=== PATIENT | male | born 1975 | race Caucasian/White ===

== ENCOUNTER 2016-10-23 20:51 | Emergency (ER) | payer MEDICAID ==
[2016-10-23 21:36] LABS: APPEARANCE CLEAR (CLEAR); BILIRUBIN NEGATIVE (NEGATIVE); COLOR YELLOW (YELLOW); GLUCOSE NEGATIVE (NEGATIVE); KETONE NEGATIVE (NEGATIVE); LEUKOCYTE ESTERASE NEGATIVE (NEGATIVE); NITRITE NEGATIVE (NEGATIVE); PROTEIN NEGATIVE (NEGATIVE); UROBILINOGEN NORMAL (NORMAL)
[2016-10-23 21:46] LABS: UDS - AMPHET NEGATIVE QUAL (NEGATIVE); UDS - BARB NEGATIVE QUAL (NEGATIVE); UDS - BENZO NEGATIVE QUAL (NEGATIVE); UDS - COCAINE NEGATIVE QUAL (NEGATIVE); UDS - METH NEGATIVE QUAL (NEGATIVE); UDS - OPIATE NEGATIVE QUAL (NEGATIVE); UDS - PCP NEGATIVE QUAL (NEGATIVE); UDS - THC NEGATIVE QUAL (NEGATIVE)
[2016-10-23 21:59] LABS: BASOPHILS 0.9 % (0.0-2.0); EOSINOPHILS 4.7 % (0-7); HEMOGLOBIN 16.1 g/dL (13.5-17.5); IMMATURE GRANULOCYTES 0.2 % (0-5); LYMPHOCYTES 37.2 % (15-50); MCH 30.3 pg (26.0-34.0); MCHC 33.5 g/dL (31.0-37.0); MCV 90.4 fL (80.0-100.0); MEAN PLATELET VOLUME 11.3 fL (7.4-10.4); MONOCYTES 7.3 % (2-11); NEUTROPHILS 49.7 % (40-80); PLATELET COUNT 179 10x3/uL (130-400); RBC 5.31 10x6/uL (4.20-6.10); RDW 12.9 % (11.5-14.5); WBC 6.4 10x3/uL (4.8-10.8)
[2016-10-23 22:15] LABS: ALBUMIN 3.3 g/dL (3.4-5.0); ALKALINE PHOSPHATASE 71 U/L (46-116); ALT (SGPT) 30 U/L (10-68); BILIRUBIN - TOTAL 0.28 mg/dL (0.2-1.3); CALC OSMOLALITY 279 mosm/kg (275-300); CALCIUM 9.2 mg/dL (8.5-10.1); CARBON DIOXIDE 30.5 mmol/L (21.0-32.0); CHLORIDE - SERUM 105 mmol/L (98-107); CREATININE - SERUM 0.9 mg/dL (0.6-1.3); GLUCOSE 104 mg/dL (74-106); POTASSIUM - SERUM 4.2 mmol/L (3.5-5.1); PROTEIN - SERUM 6.9 g/dL (6.4-8.2); SODIUM 140 mmol/L (136-145); UREA NITROGEN 14 mg/dL (7-18); eGFR NON AFRICAN AMERICAN > 90 mL/min (90-120)
== END 2016-10-23 22:17 | disposition home or self-care (01) ==
LOC: D.ER 20:51
PROVIDERS: Emergency Medicine
DX: F32.9 Major depressive disorder, single episode, unspecified (principal); I10 Essential (primary) hypertension; G47.30 Sleep apnea, unspecified; F17.200 Nicotine dependence, unspecified, uncomplicated

== ENCOUNTER 2017-01-13 06:32 | Emergency (ER) | payer MEDICAID | END 2017-01-13 07:45 | disposition home or self-care (01) | LOC: D.ER 06:32 | DX: F41.9 Anxiety disorder, unspecified (principal); I10 Essential (primary) hypertension; G47.30 Sleep apnea, unspecified ==

== ENCOUNTER 2017-11-24 18:39 | Emergency (ER) | payer MEDICAID | END 2017-11-24 20:58 | disposition home or self-care (01) | LOC: D.ER 18:39 | DX: M51.36 Other intervertebral disc degeneration, lumbar region (principal); S39.012A Strain of muscle, fascia and tendon of lower back, initial encounter; X50.0XXA Overexertion from strenuous movement or load, initial encounter; Y93.89 Activity, other specified; Y92.019 Unspecified place in single-family (private) house as the place of occurrence of the external cause; I10 Essential (primary) hypertension ==

== ENCOUNTER → 2018-03-17 19:48 | Outpatient (CLI) | payer MEDICAID | END | disposition home or self-care (01) | LOC: D.SLEEP 08:00 | DX: G47.33 Obstructive sleep apnea (adult) (pediatric) (principal) ==

== ENCOUNTER 2020-01-02 23:13 | Inpatient (IN) | payer MEDICAID ==
[~2020-01-02] VITALS: Ht 193 cm; Wt 235.0 kg
[2020-01-02] MEDS ORDERED: VERAPAMIL HCL40 MG (23:19)
[2020-01-02] MEDS ORDERED: FUROSEMIDE20 MG (23:19)
[2020-01-02] MEDS ORDERED: LEXAPRO5 MG (23:20)
[2020-01-02] MEDS ORDERED: LISINOPRIL10 MG (23:20)
[2020-01-02] MEDS ORDERED: BUPROPION HCL100 MG (23:20)
[2020-01-02] MEDS ORDERED: ATIVAN1 MG (23:22)
[2020-01-03 00:20] LABS: HEMATOCRIT 42.5 % (42.0-54.0); HEMOGLOBIN 13.9 g/dL (13.5-17.5); LYMPHOCYTES 26.8 % (15-50); MCH 29.4 pg (26.0-34.0); MCHC 32.7 g/dL (31.0-37.0); MEAN PLATELET VOLUME 10.8 fL (7.4-10.4); NEUTROPHILS 64.4 % (40-80); PLATELET COUNT 206 10x3/uL (130-400); RBC 4.72 10x6/uL (4.20-6.10); RDW 13.3 % (11.5-14.5)
[2020-01-03 00:23] LABS: CALC OSMOLALITY 277 mosm/kg (275-300); CALCIUM 8.3 mg/dL (8.5-10.1); CARBON DIOXIDE 26.9 mmol/L (21.0-32.0); CHLORIDE - SERUM 104 mmol/L (98-107); GLUCOSE 97 mg/dL (74-106); POTASSIUM - SERUM 3.9 mmol/L (3.5-5.1); SODIUM 138 mmol/L (136-145); UREA NITROGEN 19 mg/dL (7-18); eGFR NON AFRICAN AMERICAN 86 mL/min (90-120)
[2020-01-03 00:28] LABS: ALBUMIN 3.2 g/dL (3.4-5.0); ALKALINE PHOSPHATASE 86 U/L (30-120); ALT (SGPT) 21 U/L (10-68); BILIRUBIN - TOTAL 0.29 mg/dL (0.2-1.3); PROTEIN - SERUM 6.7 g/dL (6.4-8.2)
[2020-01-03 01:24] VITALS: BP 168/80; BMI 63.0
--- NOTE | 2020-01-03 01:32 | NUR ---
PT ARRIVED TO UNIT VIA STRETCHER AT 0040 ESCORTED BY ER NURSE. STARTED IV FLUIDS AND LIBRARIAN HEAD PER ORDER. ADMISSION ASSESS AND HISTORY COMPLETE.
--- NOTE | 2020-01-03 01:35 | NUR ---
HELD IVPB ROBAXIN PT HAD 1500 MG PO GIVEN IN THE ER. WILL START IVPB AT 0815.
[2020-01-03] MEDS ORDERED: BUPROPION XL300 MG PO (01:36)
[2020-01-03] MEDS ORDERED: ATIVAN1 MG PO (01:36)
[2020-01-03] MEDS ORDERED: CALAN SR240 MG PO (01:37)
[2020-01-03] MEDS ORDERED: LEXAPRO20 MG PO (01:38)
[2020-01-03] MEDS ORDERED: LISINOPRIL20 MG PO (01:38)
[2020-01-03] MEDS ORDERED: PROAIR HFA8.5 G1 INH (01:38)
[2020-01-03 04:00] VITALS: BP 145/77
--- NOTE | 2020-01-03 07:05 | NUR ---
ALERT AND ORIENTED, RESTING IN BED WITH EYES OPEN. NO C/O PAIN, MORPHINE HEMATOLOGIST MANAGING PAIN AT THIS TIME. UP WITH ASSIST. IV TO LEFT AC, NS INFUSING @ 30ML/HR. SITE PATENT WITHOUT REDNESS OR SWELLING. DENIES ANY NEEDS AT THIS TIME. CALL LIGHT IN REACH. WILL CONTINUE TO MONITOR.
[2020-01-03 08:53] VITALS: BP 146/94
[2020-01-03 10:14] VITALS: Ht 193 cm; Wt 235.0 kg
[2020-01-03 11:38] LABS: BILIRUBIN NEGATIVE (NEGATIVE); GLUCOSE NEGATIVE (NEGATIVE); KETONE NEGATIVE (NEGATIVE); NITRITE NEGATIVE (NEGATIVE); UROBILINOGEN NORMAL (NORMAL)
[2020-01-03 12:13] VITALS: BP 121/83
--- NOTE | 2020-01-03 14:05 | NUR ---
DR GUY ORDERED MRI THORACIC SPINE, DUE TO BODY HABITUS I MEASURED THE PATIENT AND HE WOULD NOT FIT WITH PROPER POSITIONING FOR THE SCAN. CALLED DR GUY AND HE WANTS A CT INSTEAD. CANCELLED MRI, ORDERED CT. INFORMED NURSE AND PATIENT OF THE CHANGES.
[2020-01-03 16:58] VITALS: BP 118/62
--- NOTE | 2020-01-03 19:00 | NUR ---
BEDSIDE REPORT RECEIVED AND CARE OF PT ASSUMED. PT LYING IN LOW ARNETT'S POSITION TALKING ON THE PHONE. IV TO LEFT AC SALINE LOCKED. WILL MONITOR FOR NEEDS.
--- NOTE | 2020-01-03 19:17 | NUR ---
ALERT AND ORIENTED. NO C/O PAIN. NO S/S OF ACUTE DISTRESS NOTED. DENIES ANY NEEDS AT THIS TIME. CALL LIGHT IN REACH. WILL CONTINUE TO MONITOR.
[2020-01-03 20:00] VITALS: BP 103/59
--- NOTE | 2020-01-03 20:48 | NUR ---
HS MEDICATIONS GIVEN TO INCLUDE DILAUDID FOR PAIN. WILL CONTINUE TO MONITOR FOR NEEDS.
[2020-01-04 04:00] VITALS: BP 117/61
[2020-01-04 07:37] VITALS: BP 147/63
--- NOTE | 2020-01-04 07:50 | NUR ---
RATES PAIN 3/10 THIS MORNING. STATES "I DON'T KNOW WHAT I DID TO MY BACK, BUT IT IS FEELING A LITTLE BETTER".
[2020-01-04 12:17] VITALS: BP 93/33
[2020-01-04 15:29] VITALS: BP 124/71
--- NOTE | 2020-01-04 17:21 | NUR ---
HE REFUSED A BATH TODAY, HE STATES "I DON'T HAVE CLOTHES TO WEAR, I AM GOING HOME TOMORROW".
--- NOTE | 2020-01-04 19:24 | NUR ---
REPORT GIVEN TO TOMY STROUD.
[2020-01-04 21:55] VITALS: BP 130/56
[2020-01-05 00:55] VITALS: BP 140/86
--- NOTE | 2020-01-05 03:01 | NUR ---
1924)rec'd chge of shift walking rounds.in bed watching tv.denies any new complaints at present time. will continue to monitor for any chges in current status and follow current plan of care.
--- NOTE | 2020-01-05 05:11 | NUR ---
I have reviewed this patient and I concur with the Shift Assessment completed by the Licensed Practical Nurse today this shift.
[2020-01-05 06:50] VITALS: BP 126/74
--- NOTE | 2020-01-05 07:00 | NUR ---
RECEIVED REPORT FROM INSTRUCTOR PHYSICAL. UPON ENTERING PT WAS ON RIGHT SIDE LAYING DOWN WITH EYES CLOSED. BREATHING EVEN AND UNLABORED. NO S/S OF DISTRESS NOTED AT THIS TIME. LEFT AC SALINE LOCKED AFTER DRIP IS FINISHED. PT IS ON ROOM AIR. COMPLAINT OF CHRONIC BACK PAIN. WILL CONTINUE TO MONITOR.
[2020-01-05 09:05] VITALS: BP 127/62
--- NOTE | 2020-01-05 09:54 | NUR ---
ADMINISTERED MORNING MEDICATION AT THIS TIME. NO DIFFICULTY SWALLOWING. PT IS RESTING IN BED COMFORTABLY. DENIES ANY NEEDS AT THIS TIME. WILL CONTINUE TO MONITOR.
--- NOTE | 2020-01-05 10:07 | NUR ---
I CALLED DR GUY ON HIS MOBILE (GIVEN TO ME BY [place] FROM OFFICE) AND WAS GIVEN THE OKAY FOR DISCHARGE.
--- NOTE | 2020-01-05 10:16 | MORECARE ---
CASE MANAGEMENT DISCHARGE SUMMARY PATIENT: MICHAEL HOLGUIN UNIT: [id number] ADM DATE: 01/03/20 AGE: 44 : [birth year] SEX: M ROOM/BED: D.2239 AUTHOR: SUSY NORMAN PHYSICIAN: REFERRING PHYSICIAN: DARCY GILMORE MD DATE OF SERVICE: 01/05/20 Discharge Plan Patient Name: MICHAEL HOLGUIN Facility: [facility]:[place] : 1975 Planned Disposition: Home or Self Care Anticipated Discharge Date: Discharge Date: Expected LOS: Initial Reviewer: [email or web address] Initial Review Date: 01/03/2020 Generated: 01/05/20 11:15 am Comments DCP- Discharge Planning Updated by [email or web address]: Deidre Tuttle on 01/05/20 9:[address] Patient Name: MICHAEL HOLGUIN Admission Status: ER Accout number: [id number] Admission Date: 01-03-2020 : 1975 Admission Diagnosis:OTHER INTERVERTEBRAL DISC DEGENERATION, THORACIC REGION Attending: DARCY GILMORE Current LOS: 2 Anticipated DC Date: Planned Disposition: Home or Self Care Primary Insurance: UNINSURED DISCOUNT PLAN Discharge Planning Comments: CM spoke with patient over phone to complete initial dc planning assessment. CM educated patient on the CM role and verbal consent given by patient to complete assessment. Patient lives at home with his spouse where he is independent with his adl's . At discharge patient plans to return home and feels this is a safe discharge. Either his helper or his sister will be his horse and wagon driver home. CM discussed availability of home health, rehab services, and medical equipment. He said he has a sleep apnea machine and a helper who comes 2-4 hours a day, with [employer]. He has a wheelchair at home too. Patient denied known discharge needs at this time. CM will continue to follow and will assist as needed with dc plans/needs. Car Wash Attendant: Deidre Tuttle DCPIA - Discharge Planning Initial Assessment Updated by [email or web address]: Deidre Tuttle on 01/05/20 10:11 am * Is the patient Alert and Oriented? Yes * How many steps to enter\exit or inside your home? * PCP RAYMOND BEE * Pharmacy [facility] [address] * Preadmission Environment Home with Family * ADLs Independent * Equipment CPAP Wheelchair * List name and contact numbers for known caregivers / representatives who currently or will assist patient after discharge: MAYO (SPOUSE) [phone] * Verbal permission to speak to the caregivers and representatives has been obtained from the patient. N/A * Community resources currently utilized [employer] * Please name any agencies selected above. [facility] * Additional services required to return to the preadmission environment? No * Can the patient safely return to the preadmission environment? Yes * Has this patient been hospitalized within the prior 30 days at any hospital? No Patient Name: MICHAEL HOLGUIN Page [phone] at 1016 All edits/amendments must be made on the electronic document DICTATION DATE: 01/05/20 1016 TELESALES CONSULTANT: CONCHIS 01/05/20 1016 RPT#: [id number] DC DATE: STATUS: ADM IN [facility] [address] [place] [address] END OF REPORT
--- NOTE | 2020-01-05 10:34 | NUR ---
DC PT IV WITH CATHETER TIP INTACT. EXPLAINED PT DISCHARGE PAPERS, PT SIGNED ALL PAPERS AND IS CONTACTING RIDE TO GET HOME. DENIES ANY NEEDS AT THIS TIME.
--- NOTE | 2020-01-05 18:19 | MORECARE ---
CASE MANAGEMENT DISCHARGE SUMMARY PATIENT: MICHAEL HOLGUIN UNIT: [id number] ADM DATE: 01/03/20 AGE: 44 : 73 SEX: M ROOM/BED: D.2239 AUTHOR: SUSY NORMAN PHYSICIAN: REFERRING PHYSICIAN: DARCY GILMORE MD DATE OF SERVICE: 01/05/20 Discharge Plan Patient Name: MICHAEL HOLGUIN Facility: [facility]:[place] : 1975 Planned Disposition: Home or Self Care Anticipated Discharge Date: Discharge Date: 01/05/2020 Expected LOS: 0 Initial Reviewer: [email or web address] Initial Review Date: 01/03/2020 Generated: 01/05/20 7:18 pm Comments DCP- Discharge Planning Updated by [email or web address]: Deidre Tuttle on 01/05/20 9:[address] Patient Name: MICHAEL HOLGUIN Admission Status: ER Accout number: [id number] Admission Date: 01-03-2020 : 1975 Admission Diagnosis:OTHER INTERVERTEBRAL DISC DEGENERATION, THORACIC REGION Attending: DARCY GILMORE Current LOS: 2 Anticipated DC Date: Planned Disposition: Home or Self Care Primary Insurance: UNINSURED DISCOUNT PLAN Discharge Planning Comments: CM spoke with patient over phone to complete initial dc planning assessment. CM educated patient on the CM role and verbal consent given by patient to complete assessment. Patient lives at home with his spouse where he is independent with his adl's . At discharge patient plans to return home and feels this is a safe discharge. Either his helper or his sister will be his bobtail driver home. CM discussed availability of home health, rehab services, and medical equipment. He said he has a sleep apnea machine and a helper who comes 2-4 hours a day, with [facility]. He has a wheelchair at home too. Patient denied known discharge needs at this time. CM will continue to follow and will assist as needed with dc plans/needs. Water Carter: Deidre Tuttle DCPIA - Discharge Planning Initial Assessment Updated by [email or web address]: Deidre Tuttle on 01/05/20 10:11 am * Is the patient Alert and Oriented? Yes * How many steps to enter\exit or inside your home? * PCP RAYMOND BEE * Pharmacy [facility] [address] * Preadmission Environment Home with Family * ADLs Independent * Equipment CPAP Wheelchair * List name and contact numbers for known caregivers / representatives who currently or will assist patient after discharge: MAYO (SPOUSE) [phone] * Verbal permission to speak to the caregivers and representatives has been obtained from the patient. N/A * Community resources currently utilized [employer] * Please name any agencies selected above. [facility] * Additional services required to return to the preadmission environment? No * Can the patient safely return to the preadmission environment? Yes * Has this patient been hospitalized within the prior 30 days at any hospital? No Last DP export: 01/05/20 9:16 am Patient Name: MICHAEL HOLGUIN Page [id number] at 1819 All edits/amendments must be made on the electronic document DICTATION DATE: 01/05/201817 PORTER SAMPLE CASE: CONCHIS 01/05/201817 RPT#: [id number] DC DATE:01/05/20 STATUS: DIS IN [facility] [address] [place] [address] END OF REPORT
== END 2020-01-05 10:35 | disposition home or self-care (01) | DRG 552 ==
LOC: D.ER 23:13 → D.MS 01-03 00:05 → OBSVTIME 01-03 00:05 → D.MS 01-03 17:46
PROVIDERS: Emergency Medicine; ADMIT Internal Medicine Nephrology; ATTEND Internal Medicine Nephrology
DX: M51.34 Other intervertebral disc degeneration, thoracic region (principal); F17.203 Nicotine dependence unspecified, with withdrawal; N17.9 Acute kidney failure, unspecified; Z68.44 Body mass index [BMI] 60.0-69.9, adult; E66.01 Morbid (severe) obesity due to excess calories; I10 Essential (primary) hypertension; J45.909 Unspecified asthma, uncomplicated

== ENCOUNTER 2021-02-04 15:44 | Emergency (ER) | payer MEDICAID ==
[~2021-02-04] VITALS: Ht 193 cm; Wt 227.3 kg
[~2021-02-04 15:44] MED LIST: ATIVAN1 MG; ATIVAN1 MG PO; BUPROPION HCL100 MG; BUPROPION XL300 MG PO; CALAN SR240 MG PO; FUROSEMIDE20 MG; LEXAPRO20 MG PO; LEXAPRO5 MG; LISINOPRIL10 MG; LISINOPRIL20 MG PO; PROAIR HFA8.5 G1 INH; VERAPAMIL HCL40 MG
[2021-02-04 15:46] VITALS: BP 153/82; Ht 193 cm; Wt 227.3 kg
[2021-02-04 16:08] LABS: BASOPHILS 0.5 % (0-2); EOSINOPHILS 2.7 % (0-7); HEMATOCRIT 44.5 % (42.0-54.0); HEMOGLOBIN 14.9 g/dL (13.5-17.5); IMMATURE GRANULOCYTES 0.1 % (0-5); LYMPHOCYTE ABS# 2.54 10x3/uL (1.32-3.57); LYMPHOCYTES 33.7 % (15-50); MCH 29.7 pg (26.0-34.0); MCHC 33.5 g/dL (31.0-37.0); MCV 88.6 fL (80.0-100.0); MEAN PLATELET VOLUME 10.7 fL (7.4-10.4); MONOCYTES 8.4 % (2-11); NEUTROPHIL ABS# 4.11 10x3/uL (1.78-5.38); NEUTROPHILS 54.6 % (40-80); PLATELET COUNT 215 10x3/uL (130-400); RBC 5.02 10x6/uL (4.20-6.10); RDW 13.5 % (11.5-14.5); WBC 7.5 10x3/uL (4.8-10.8)
[2021-02-04 16:21] LABS: CALC OSMOLALITY 276 mosm/kg (275-300); CALCIUM 8.7 mg/dL (8.5-10.1); CARBON DIOXIDE 26.7 mmol/L (21.0-32.0); CHLORIDE - SERUM 102 mmol/L (98-107); CREATININE - SERUM 0.9 mg/dL (0.6-1.3); GLUCOSE 103 mg/dL (74-106); POTASSIUM - SERUM 3.8 mmol/L (3.5-5.1); SODIUM 139 mmol/L (136-145); UREA NITROGEN 9 mg/dL (7-18); eGFR NON AFRICAN AMERICAN > 90 mL/min (90-120)
[2021-02-04 16:21] LABS: BILIRUBIN NEGATIVE (NEGATIVE); KETONE NEGATIVE (NEGATIVE); NITRITE NEGATIVE (NEGATIVE); UROBILINOGEN NORMAL mg/dL (< 2)
[2021-02-04 16:27] LABS: UDS - AMPHET NEGATIVE QUAL (NEGATIVE); UDS - BARB NEGATIVE QUAL (NEGATIVE); UDS - BENZO NEGATIVE QUAL (NEGATIVE); UDS - COCAINE NEGATIVE QUAL (NEGATIVE); UDS - OPIATE NEGATIVE QUAL (NEGATIVE); UDS - PCP NEGATIVE QUAL (NEGATIVE); UDS - THC NEGATIVE QUAL (NEGATIVE)
[2021-02-04 16:29] LABS: ALBUMIN 3.4 g/dL (3.4-5.0); ALKALINE PHOSPHATASE 80 U/L (30-120); ALT (SGPT) 33 U/L (10-68); BILIRUBIN - TOTAL 0.39 mg/dL (0.2-1.3); MAGNESIUM - SERUM 2.1 mg/dL (1.8-2.4); PROTEIN - SERUM 7.1 g/dL (6.4-8.2)
== END 2021-02-04 17:54 | disposition home or self-care (01) ==
LOC: D.ER 15:44
PROVIDERS: Family Medicine
DX: F41.0 Panic disorder [episodic paroxysmal anxiety] (principal); F41.9 Anxiety disorder, unspecified; I10 Essential (primary) hypertension; Z72.0 Tobacco use

== ENCOUNTER 2021-03-01 15:54 | Emergency (ER) | payer MEDICAID ==
[~2021-03-01] VITALS: Ht 193 cm; Wt 236.4 kg
[2021-03-01 15:58] VITALS: Ht 193 cm; Wt 236.4 kg
[2021-03-01 18:14] LABS: BASOPHILS 1.3 % (0-2); HEMATOCRIT 45.8 % (42.0-54.0); LYMPHOCYTES 26.9 % (15-50); MCH 28.6 pg (26.0-34.0); MCHC 32.7 g/dL (31.0-37.0); MCV 87.5 fL (80.0-100.0); MONOCYTES 8.4 % (2-11); NEUTROPHILS 61.4 % (40-80); PLATELET COUNT 243 10x3/uL (130-400); RBC 5.23 10x6/uL (4.20-6.10); RDW 13.8 % (11.5-14.5); WBC 8.3 10x3/uL (4.8-10.8)
[2021-03-01 18:28] LABS: CALC OSMOLALITY 283 mosm/kg (275-300); CARBON DIOXIDE 29.5 mmol/L (21.0-32.0); CHLORIDE - SERUM 105 mmol/L (98-107); CREATININE - SERUM 0.9 mg/dL (0.6-1.3); GLUCOSE 100 mg/dL (74-106); POTASSIUM - SERUM 3.9 mmol/L (3.5-5.1); SODIUM 142 mmol/L (136-145); UREA NITROGEN 15 mg/dL (7-18); eGFR NON AFRICAN AMERICAN > 90 mL/min (90-120)
[2021-03-01 18:43] LABS: ALBUMIN 3.4 g/dL (3.4-5.0); ALKALINE PHOSPHATASE 77 U/L (30-120); ALT (SGPT) 27 U/L (10-68); BILIRUBIN - TOTAL 0.37 mg/dL (0.2-1.3); THYROID STIMULATING HORMONE 0.84 uIU/mL (0.36-3.74)
[2021-03-01 19:11] LABS: BILIRUBIN NEGATIVE (NEGATIVE); KETONE NEGATIVE (NEGATIVE); NITRITE NEGATIVE (NEGATIVE); UROBILINOGEN NORMAL mg/dL (< 2)
[2021-03-01 19:21] LABS: UDS - AMPHET NEGATIVE QUAL (NEGATIVE); UDS - BARB NEGATIVE QUAL (NEGATIVE); UDS - BENZO NEGATIVE QUAL (NEGATIVE); UDS - COCAINE NEGATIVE QUAL (NEGATIVE); UDS - OPIATE NEGATIVE QUAL (NEGATIVE); UDS - PCP NEGATIVE QUAL (NEGATIVE); UDS - THC NEGATIVE QUAL (NEGATIVE)
[2021-03-01] MEDS ORDERED: VISTARIL50 MG PO (19:54)
[2021-03-01 20:38] VITALS: BP 155/94
== END 2021-03-01 20:45 | disposition home or self-care (01) ==
LOC: D.ER 15:54
PROVIDERS: Emergency Medicine
DX: F41.9 Anxiety disorder, unspecified (principal); I10 Essential (primary) hypertension; Z72.0 Tobacco use